=== PATIENT | female | born 1985 | race African-American/Black ===

== ENCOUNTER 2018-11-20 19:04 | Emergency (ER) | payer OTHER ==
[~2018-11-20] VITALS: Ht 162.6 cm; Wt 65.8 kg
[~2018-11-20 19:04] MED LIST: ALYACEN1 EAC1 PO; CITRATE OF MAG296 ML PO; COLACE 100 MG100 MG PO; DEPO-PROVER150 MG/M1 IM; MIRALAX255 GM PO; PHENERGAN 25 MG25 M1; PHENERGAN25 M2 RC; PROTONIX40 MG PO; RANITIDINE 150150 M1 PO; TRAMADOL 50 MG50 MG PO; ZOFRAN 4 MG ORAL4 MG PO; ZOFRAN4 MG PO
[2018-11-20] MEDS ORDERED: NAPROSYN500 MG PO (21:29)
[2018-11-20 21:51] VITALS: BP 133/66
== END 2018-11-20 21:52 | disposition home or self-care (01) ==
LOC: ER 19:04
DX: S40.012A Contusion of left shoulder, initial encounter (principal); S50.02XA Contusion of left elbow, initial encounter; W06.XXXA Fall from bed, initial encounter; Y93.89 Activity, other specified; Y92.89 Other specified places as the place of occurrence of the external cause; Y99.8 Other external cause status